=== PATIENT | female | born 1980 | race African-American/Black ===

== ENCOUNTER 2019-12-19 13:47 | Inpatient (IN) ==
[2019-12-19] MEDS ORDERED: methylPREDNISolone SOD SUC 125 MG/2 ML VIAL IV STA (14:14)
[2019-12-19] MEDS ORDERED: ONDANSETRON 4 MG/2 ML VIAL IV STA (14:14)
[2019-12-19] MEDS ORDERED: AZITHROMYCIN INJ 500 MG in SODIUM CHLORIDE 0.9% 250 ML IV STA (14:14)
[2019-12-19 15:07] LABS: Basophils % 0.3 % (0.0-0.8); Eosinophils # 0.2 10*3/uL (0.0-0.87); Eosinophils % 2.6 % (0.00-10.9); Hematocrit 38.5 VOL% (35.7-47.0); Hemoglobin 11.6 GM/DL (12.0-16.0); Immature Granulocytes % 0.3 %; Immature Granulocytes Absolute 0.02 #; Lymphocytes # 1.6 10*3/uL (1.4-4.0); Lymphocytes % 26.7 % (21.3-54.2); Mean Corpuscular HGB Conc 30.1 GM/DL (32-36); Mean Corpuscular Volume 82.8 FL (87-102); Mean Platelet Volume 11.5 FL (9.6-12.0); Neutrophils % 63.1 % (38.7-73.9); Platelet Count 295 T/CUMM (130-400); Red Blood Count 4.65 MC/CUMM (3.8-5.5); Red Cell Distribution Width 15.6 % (9.3-17.3); White Blood Count 5.9 T/CUMM (4-12)
[2019-12-19 15:17] LABS: PT Patient Result 10.4 SECS (9.8-11.9); Partial Thromboplastin Time 25.3 SECS (23.9-33.8)
[2019-12-19 15:27] LABS: Alanine Aminotransferase 121 U/L (13-56); Albumin 3.3 G/DL (3.4-5.0); Alkaline Phosphatase 123 U/L (45-117); Aspartate Amino Transferase 96 U/L (0-37); Blood Urea Nitrogen 7 MG/DL (7-18); Calcium 8.7 MG/DL (8.5-10.1); Estimated Glom Filtration Rate 154 ML/MIN; Ferritin 30.1 ng/ml (8-252); Glucose 195 MG/DL (74-106); Osmolality,Calculated 270.2 MOS/KG (273-304); Total Protein 7.7 G/DL (6.4-8.3); Troponin I < 0.015 NG/ML (0.00-0.045)
[2019-12-19 15:43] LABS: Apearance,Urine CLEAR (Clear); Bilirubin,Urine Negative (Negative); Blood, Urine Negative (Negative); Glucose,Urine (UA) 50 mg/dL (Negative); Hyaline Casts,Urine 4 /LPF (0-3); Ketones,Urine 20 mg/dL (Negative); Mucus,Urine Many /LPF (Occasional); Nitrite,Urine Negative (Negative); Protein,Urine 100 MG/DL; RBC,Urine <1 /HPF (0-4); Urine Color Amber (Yellow); Urine Specific Gravity 1.026 (1.001-1.035); WBC,Urine 4 /HPF (0-6)
[2019-12-19 15:48] LABS: Barbiturates Screen,Urine Negative (Negative); Benzodiazepines Screen,Urine Negative (Negative); Cannabinoid Screen,Urine Negative (Negative); Opiate Screen,Urine Negative (Negative); Phencyclidine Screen,Urine Negative (Negative)
[2019-12-19] MEDS ORDERED: ENOXAPARIN 40 MG/0.4 ML SYRINGE SUBCUT STA (16:51)
[2019-12-19 16:57] LABS: ABG Base Excess -0.5 MMOL/L (-2.5-2.5); ABG Oxygen Saturation 93.5 % (95-100); ABG PCO2 37.1 MM HG (35-48); ABG PH 7.415 (7.35-7.45); ABG PO2 69.2 MM HG (80-95); ABG TCO2 21.3 MMOL/L (23-27)
[2019-12-19] MEDS ORDERED: ALPRAZolam 0.5 MG TABLET PO ONE (17:32)
[2019-12-19 17:56] LABS: HIV Antigen/Antibody Result Nonreactive (Nonreactive)
[2019-12-19 17:57] LABS: Hepatitis B Core IgM Quant 0.15 Index; Hepatitis B Surface Ag Result Negative (Negative); Hepatitis C Virus Ab Quant 0.08 Index; Hepatitis C Virus Ab Result Negative (Negative)
[2019-12-19] MEDS: cefTRIAXone 2,000 MG in SYRINGE 1 EACH IV SCH (20:40)
[2019-12-19] MEDS: INSULIN LISPRO 100 UNIT/ML SUBCUT SCH (21:41)
[2019-12-20] MEDS: ACETAMINOPHEN 325 MG TABLET PO PRN ×2 (06:23→20:28)
[2019-12-20 06:25] LABS: Basophils % 0.2 % (0.0-0.8); Hematocrit 36.9 VOL% (35.7-47.0); Hemoglobin 11.1 GM/DL (12.0-16.0); Immature Granulocytes % 0.2 %; Immature Granulocytes Absolute 0.01 #; Lymphocytes # 1.2 10*3/uL (1.4-4.0); Lymphocytes % 28.6 % (21.3-54.2); Mean Corpuscular HGB Conc 30.1 GM/DL (32-36); Mean Corpuscular Volume 83.3 FL (87-102); Mean Platelet Volume 11.6 FL (9.6-12.0); Monocytes % 4.2 % (1.7-12.7); Neutrophils % 66.8 % (38.7-73.9); Platelet Count 288 T/CUMM (130-400); Red Blood Count 4.43 MC/CUMM (3.8-5.5); Red Cell Distribution Width 15.4 % (9.3-17.3); White Blood Count 4.1 T/CUMM (4-12)
[2019-12-20 06:33] LABS: PT Patient Result 10.4 SECS (9.8-11.9)
[2019-12-20 06:48] LABS: Albumin 3.2 G/DL (3.4-5.0); Bilirubin,Total 0.7 MG/DL (0.2-1.0); Calcium 8.8 MG/DL (8.5-10.1); Ferritin 28.9 ng/ml (8-252); Osmolality,Calculated 276.2 MOS/KG (273-304); Total Protein 7.5 G/DL (6.4-8.3)
[2019-12-20] MEDS: INSULIN LISPRO 100 UNIT/ML SUBCUT SCH ×5 (08:23→20:27)
[2019-12-20] MEDS: ENOXAPARIN 40 MG/0.4 ML SYRINGE SUBCUT SCH ×2 (08:24→20:27)
[2019-12-20] MEDS: PARoxetine 10 MG TABLET PO SCH (08:24)
[2019-12-20] MEDS: AZITHROMYCIN INJ 500 MG in SODIUM CHLORIDE 0.9% 250 ML IV SCH (08:24)
[2019-12-20 08:32] LABS: Sedimentation Rate-Westergren 56 MM/HR (0-20)
[2019-12-20] MEDS ORDERED: ERGOCALCIFEROL 50,000 UNIT CAPSULE PO SCH (09:00)
[2019-12-20] MEDS ORDERED: ENOXAPARIN 40 MG/0.4 ML SYRINGE SUBCUT SCH (09:00)
[2019-12-20] MEDS ORDERED: CITALOPRAM 40 MG TABLET PO SCH (09:00)
[2019-12-20] MEDS ORDERED: DEXTROSE 50% 25 GM/50 ML VIAL IV PRN (09:45)
[2019-12-20] MEDS ORDERED: GLUCAGON 1 MG VIAL IM PRN (09:45)
[2019-12-20] MEDS: cefTRIAXone 2,000 MG in SYRINGE 1 EACH IV SCH (18:59)
[2019-12-20] MEDS: INSULIN GLARGINE 100 UNIT/ML SUBCUT SCH (20:27)
[2019-12-21] MEDS: ALPRAZolam 0.25 MG TABLET PO PRN (03:57)
[2019-12-21] MEDS: ACETAMINOPHEN 325 MG TABLET PO PRN ×2 (03:57→12:30)
[2019-12-21 05:40] LABS: Basophils % 0.2 % (0.0-0.8); Hematocrit 34.6 VOL% (35.7-47.0); Hemoglobin 10.5 GM/DL (12.0-16.0); Immature Granulocytes % 0.2 %; Immature Granulocytes Absolute 0.01 #; Lymphocytes # 1.5 10*3/uL (1.4-4.0); Lymphocytes % 34.1 % (21.3-54.2); Mean Corpuscular HGB Conc 30.3 GM/DL (32-36); Mean Corpuscular Volume 82.8 FL (87-102); Mean Platelet Volume 11.7 FL (9.6-12.0); Monocytes % 5.8 % (1.7-12.7); Neutrophils % 59.7 % (38.7-73.9); Platelet Count 277 T/CUMM (130-400); Red Blood Count 4.18 MC/CUMM (3.8-5.5); Red Cell Distribution Width 15.6 % (9.3-17.3); White Blood Count 4.5 T/CUMM (4-12)
[2019-12-21 05:48] LABS: PT Patient Result 10.7 SECS (9.8-11.9)
[2019-12-21 06:02] LABS: Albumin 3.1 G/DL (3.4-5.0); Calcium 8.4 MG/DL (8.5-10.1); Ferritin 29.2 ng/ml (8-252); Osmolality,Calculated 268.4 MOS/KG (273-304); Total Protein 7.2 G/DL (6.4-8.3)
[2019-12-21 06:34] LABS: Risk Ratio 7.26; VLDL CHOLESTEROL 58.2 MG/DL
[2019-12-21 07:12] LABS: Sedimentation Rate-Westergren 49 MM/HR (0-20)
[2019-12-21] MEDS: ENOXAPARIN 40 MG/0.4 ML SYRINGE SUBCUT SCH ×2 (08:08→20:19)
[2019-12-21] MEDS: ZINC GLUCONATE 50 MG TABLET PO SCH (08:09)
[2019-12-21] MEDS: AZITHROMYCIN INJ 500 MG in SODIUM CHLORIDE 0.9% 250 ML IV SCH (08:09)
[2019-12-21] MEDS: PARoxetine 10 MG TABLET PO SCH (08:09)
[2019-12-21] MEDS: INSULIN LISPRO 100 UNIT/ML SUBCUT SCH ×7 (08:09→20:19)
[2019-12-21] MEDS: POTASSIUM CHLORIDE 20 MEQ TABLET PO PRN ×4 (08:15→18:20)
[2019-12-21] MEDS ORDERED: ACETAMINOPHEN 500 MG TABLET PO ONE (15:05)
[2019-12-21] MEDS: POLYETHYLENE GLYCOL POWDER 17 GM PACK PO SCH (17:27)
[2019-12-21] MEDS: cefTRIAXone 2,000 MG in SYRINGE 1 EACH IV SCH (17:33)
[2019-12-21] MEDS: INSULIN GLARGINE 100 UNIT/ML SUBCUT SCH (20:19)
[2019-12-21] MEDS: DOCUSATE SODIUM 100 MG CAPSULE PO SCH (20:19)
[2019-12-21] MEDS: ROSUVASTATIN 20 MG TABLET PO SCH (20:19)
[2019-12-21] MEDS: ACETAMINOPHEN 325 MG TABLET PO SCH (21:45)
[2019-12-22] MEDS: ACETAMINOPHEN 325 MG TABLET PO PRN (04:05)
[2019-12-22 05:27] LABS: Basophils % 0.2 % (0.0-0.8); Hematocrit 35.1 VOL% (35.7-47.0); Hemoglobin 10.6 GM/DL (12.0-16.0); Immature Granulocytes % 0.2 %; Immature Granulocytes Absolute 0.01 #; Lymphocytes # 1.6 10*3/uL (1.4-4.0); Lymphocytes % 36.3 % (21.3-54.2); Mean Corpuscular HGB Conc 30.2 GM/DL (32-36); Mean Corpuscular Volume 81.3 FL (87-102); Mean Platelet Volume 12.4 FL (9.6-12.0); Monocytes % 5.3 % (1.7-12.7); Platelet Count 142 T/CUMM (130-400); Red Blood Count 4.32 MC/CUMM (3.8-5.5); Red Cell Distribution Width 15.5 % (9.3-17.3); White Blood Count 4.4 T/CUMM (4-12)
[2019-12-22 05:37] LABS: PT Patient Result 11.1 SECS (9.8-11.9)
[2019-12-22 06:27] LABS: Albumin 2.8 G/DL (3.4-5.0); Bilirubin,Total 0.8 MG/DL (0.2-1.0); Calcium 8.5 MG/DL (8.5-10.1); Ferritin 63.5 ng/ml (8-252); Osmolality,Calculated 269.4 MOS/KG (273-304)
[2019-12-22 06:38] LABS: Hypochromasia 1+; Microcytosis 1+; Polychromasia Slight
[2019-12-22 06:39] LABS: Ovalocytes Few; Platelet Estimate Adequate
[2019-12-22 07:30] LABS: Sedimentation Rate-Westergren 54 MM/HR (0-20)
[2019-12-22] MEDS: INSULIN LISPRO 100 UNIT/ML SUBCUT SCH ×7 (09:47→21:00)
[2019-12-22] MEDS: POTASSIUM CHLORIDE 20 MEQ TABLET PO SCH (09:48)
[2019-12-22] MEDS: COENZYME Q10 100 MG CAPSULE PO SCH (09:48)
[2019-12-22] MEDS: ZINC GLUCONATE 50 MG TABLET PO SCH (09:48)
[2019-12-22] MEDS: DOCUSATE SODIUM 100 MG CAPSULE PO SCH ×2 (09:48→21:00)
[2019-12-22] MEDS: ACETAMINOPHEN 325 MG TABLET PO SCH ×3 (09:48→20:59)
[2019-12-22] MEDS: POLYETHYLENE GLYCOL POWDER 17 GM PACK PO SCH (09:48)
[2019-12-22] MEDS: cefTRIAXone 2,000 MG in SYRINGE 1 EACH IV SCH (09:49)
[2019-12-22] MEDS: PARoxetine 10 MG TABLET PO SCH (09:49)
[2019-12-22] MEDS: AZITHROMYCIN 250 MG TABLET PO SCH (12:05)
[2019-12-22] MEDS: ROSUVASTATIN 20 MG TABLET PO SCH (21:00)
[2019-12-22] MEDS: INSULIN GLARGINE 100 UNIT/ML SUBCUT SCH (21:01)
[2019-12-22] MEDS: ENOXAPARIN 40 MG/0.4 ML SYRINGE SUBCUT SCH (21:02)
[2019-12-23] MEDS: ACETAMINOPHEN 325 MG TABLET PO PRN (04:54)
[2019-12-23 06:18] LABS: PT Patient Result 11.1 SECS (9.8-11.9)
[2019-12-23 06:29] LABS: Basophils % 0.3 % (0.0-0.8); Hematocrit 34.9 VOL% (35.7-47.0); Hemoglobin 10.5 GM/DL (12.0-16.0); Immature Granulocytes % 0.3 %; Immature Granulocytes Absolute 0.02 #; Lymphocytes # 1.9 10*3/uL (1.4-4.0); Lymphocytes % 29.2 % (21.3-54.2); Mean Corpuscular HGB Conc 30.1 GM/DL (32-36); Mean Corpuscular Volume 83.3 FL (87-102); Mean Platelet Volume 11.9 FL (9.6-12.0); Monocytes % 3.9 % (1.7-12.7); Neutrophils % 66.3 % (38.7-73.9); Platelet Count 242 T/CUMM (130-400); Red Blood Count 4.19 MC/CUMM (3.8-5.5); Red Cell Distribution Width 15.7 % (9.3-17.3); White Blood Count 6.4 T/CUMM (4-12)
[2019-12-23 07:04] LABS: Band Neutrophils 6 % (0-10); Hypochromasia 1+; Lymphocytes 30 % (20-55); Ovalocytes Slight; Platelet Estimate Adequate; Segmented Neutrophils 60 % (50-85); Total Cells Counted 100
[2019-12-23 07:05] LABS: Microcytosis 1+
[2019-12-23 07:06] LABS: Albumin 3.1 G/DL (3.4-5.0); Bilirubin,Total 0.9 MG/DL (0.2-1.0); Calcium 9.3 MG/DL (8.5-10.1); Ferritin 148.9 ng/ml (8-252); Osmolality,Calculated 264.4 MOS/KG (273-304); Total Protein 8.4 G/DL (6.4-8.3)
[2019-12-23 08:21] LABS: Sedimentation Rate-Westergren 92 MM/HR (0-20)
[2019-12-23] MEDS: POLYETHYLENE GLYCOL POWDER 17 GM PACK PO SCH (09:00)
[2019-12-23] MEDS: INSULIN LISPRO 100 UNIT/ML SUBCUT SCH ×7 (09:00→20:28)
[2019-12-23] MEDS: cefTRIAXone 2,000 MG in SYRINGE 1 EACH IV SCH (09:00)
[2019-12-23] MEDS: COENZYME Q10 100 MG CAPSULE PO SCH (09:01)
[2019-12-23] MEDS: ZINC GLUCONATE 50 MG TABLET PO SCH (09:01)
[2019-12-23] MEDS: POTASSIUM CHLORIDE 20 MEQ TABLET PO SCH (09:02)
[2019-12-23] MEDS: DOCUSATE SODIUM 100 MG CAPSULE PO SCH ×2 (09:02→21:17)
[2019-12-23] MEDS: PARoxetine 10 MG TABLET PO SCH (09:02)
[2019-12-23] MEDS: ACETAMINOPHEN 325 MG TABLET PO SCH ×3 (09:02→21:18)
[2019-12-23] MEDS: AZITHROMYCIN 250 MG TABLET PO SCH (09:02)
[2019-12-23] MEDS: INSULIN GLARGINE 100 UNIT/ML SUBCUT SCH (20:29)
[2019-12-23] MEDS: ENOXAPARIN 40 MG/0.4 ML SYRINGE SUBCUT SCH (21:18)
[2019-12-23] MEDS: ROSUVASTATIN 20 MG TABLET PO SCH (21:18)
[2019-12-23] MEDS: ALPRAZolam 0.25 MG TABLET PO PRN (21:19)
[2019-12-24 06:14] LABS: Basophils % 0.2 % (0.0-0.8); Hematocrit 34.6 VOL% (35.7-47.0); Hemoglobin 10.3 GM/DL (12.0-16.0); Immature Granulocytes % 0.5 %; Immature Granulocytes Absolute 0.03 #; Lymphocytes % 32.7 % (21.3-54.2); Mean Corpuscular HGB Conc 29.8 GM/DL (32-36); Mean Corpuscular Volume 84.4 FL (87-102); Mean Platelet Volume 11.4 FL (9.6-12.0); Neutrophils % 61.6 % (38.7-73.9); Platelet Count 257 T/CUMM (130-400); Red Cell Distribution Width 15.8 % (9.3-17.3)
[2019-12-24 06:23] LABS: PT Patient Result 10.9 SECS (9.8-11.9)
[2019-12-24 06:38] LABS: Hypochromasia 1+; Microcytosis Slight; Platelet Estimate Adequate
[2019-12-24 06:55] LABS: Albumin 2.7 G/DL (3.4-5.0); Bilirubin,Total 0.8 MG/DL (0.2-1.0); Calcium 8.8 MG/DL (8.5-10.1); Ferritin 157.3 ng/ml (8-252); Osmolality,Calculated 267.1 MOS/KG (273-304); Total Protein 7.4 G/DL (6.4-8.3)
[2019-12-24 07:49] LABS: Sedimentation Rate-Westergren 70 MM/HR (0-20)
[2019-12-24 07:55] VITALS: BP 111/61
[2019-12-24] MEDS: INSULIN LISPRO 100 UNIT/ML SUBCUT SCH ×2 (08:19→08:21)
[2019-12-24] MEDS: POLYETHYLENE GLYCOL POWDER 17 GM PACK PO SCH (08:21)
[2019-12-24] MEDS: cefTRIAXone 2,000 MG in SYRINGE 1 EACH IV SCH (08:21)
[2019-12-24] MEDS: COENZYME Q10 100 MG CAPSULE PO SCH (08:22)
[2019-12-24] MEDS: ZINC GLUCONATE 50 MG TABLET PO SCH (08:22)
[2019-12-24] MEDS: ACETAMINOPHEN 325 MG TABLET PO SCH (08:23)
[2019-12-24] MEDS: PARoxetine 10 MG TABLET PO SCH (08:23)
[2019-12-24] MEDS: POTASSIUM CHLORIDE 20 MEQ TABLET PO SCH (08:23)
[2019-12-24] MEDS: DOCUSATE SODIUM 100 MG CAPSULE PO SCH (08:23)
[2019-12-25 23:41] LABS: Specimen Source THROAT
== END 2019-12-24 11:51 | disposition home or self-care (01) | DRG 137 ==
LOC: N.ED 13:47 → SUATTDRO 16:37 → N.EDINP 16:37 → N.2E 18:49
PROVIDERS: ADMIT Hospitalist; ATTEND Internal Medicine